=== PATIENT | female | born 1975 | race Caucasian/White ===

== ENCOUNTER 2024-07-22 18:27 | Emergency (ER) | payer OTHER, SELFPAY ==
[2024-07-22 18:40] VITALS: BP 112/65
--- NOTE | 2024-07-22 19:13 | ED.MUSCINJ ---
HPI-Injury
<Flor Anthony NP - Last Filed: 07/22/24 19:17>
General
Chief Complaint: Fall
Time Seen by Provider: 07/22/24 19:45
<Gela Pena PA-C - Last Filed: 07/23/24 00:37>
General
Source: patient
Exam Limitations: none
Nursing documentation reviewed up to this point in time: agreed with
History of Present Illness-Injury
Is pt an associate of [facility]?: No
Initial Injury comments:
49-year-old female presents to the emergency department for evaluation of right knee and right hand pain following mechanical fall at [facility]. Patient states she was grabbing a container from a shelf when she then proceeded to strip on a piece of
plastic that was in the middle of the aisle. She fell forward bracing herself with her right hand. Patient complaining of right knee pain and right hand pain. She does have mild pain in her right lower back, as well. There was no head strike or
loss of conscious. Patient denies any numbness/tingling in lower extremities, weakness, loss of bowel/bladder incontinence, saddle anesthesia.
Patient does report pain with ambulation although is walking to and from bathroom without difficulty.
Patient did take some ibuprofen just prior to arrival.
ED Provider Triage
<Flor Anthony RECOVERY ROOM RN - Last Filed: 07/22/24 19:17>
-
Patient seen by provider in Triage?: Seen in Triage
Attestation: A medical screening examination has been initiated by a qualified medical provider. Based on the assessment performed at this time, it has been determined that an emergent medical condition may exist and the patient has been informed
that further medical evaluation and possible additional diagnostic testing may be needed.
HPI: Patient reached up to grab containers in the storage container aisle at [facility] took a couple steps foot got tangled in plastic tie on floor, she fell forward, she caught herself with her right hand on the floor, now presents with now has pain
in right knee, right hand. States pain from right knee radiates up thigh to lower back. Denies neck pain.
GENERAL: Alert , in no apparent distress
EYE: No visual abnormalities.
NECK: Trachea midline
ENT: No visible abnormalities.
LUNGS: No acute respiratory distress
NEUROLOGICAL: Alert and oriented
SKIN: Skin intact. No visible changes.
MUSCULOSKELETAL: Moving extremities normally
PSYCH: Normal and appropriate interaction.
This is a medical evaluation conducted in person to initiate diagnostic evaluation and provide initial therapeutics. Please see further documentation by the treating clinician.
Review of Systems
<Gela Pena PA-C - Last Filed: 07/23/24 00:37>
Review of Systems
Allergies reviewed?: Yes
All Other Systems: ROS reviewed and negative except as documented in HPI and ROS
Phy Exam
<Gela Pena PA-C - Last Filed: 07/23/24 00:37>
Physical Exam
Physical Exam:
Vitals: Patient's vital signs are stable. Afebrile
General: Patient is very well appearing, no acute distress
Skin: Warm and dry, no rashes or lesions
Head: Normocephalic, atraumatic
Eyes: Sclera nonicteric. EOMs intact. No nystagmus.
Throat: Protecting airway
Neck: Normal ROM, no cervical spine tenderness, no meningismus
Cardiac: Regular rate and rhythm, no murmurs.
Pulm: Normal respiratory effort, no wheezes, rales, rhonchi heard on exam.
Abdomen: No abdominal tenderness.
Extremities: Small contusion noted to right patella without any deformity. No joint line tenderness of right knee. Patient has excellent range of motion right knee without pain. No pain with internal/external rotation right hip. Mild ecchymoses
of dorsal right hand although no bony tenderness. Excellent range of motion right fingers, right wrist without pain. No tenderness at anatomical snuffbox. Left upper and left lower extremities atraumatic and nontender. Patient has palpable DP
and radial pulses in bilateral upper and lower extremities. Sensation fully intact. Strength 5 out of 5 in upper and lower extremities
Neuro: AAOx3. CN II-XII intact. No focal neurologic deficits.
Psychiatric: Normal affect.
Injury Course
<Flor Anthony, RECOVERY ROOM RN - Last Filed: 07/22/24 19:17>
Orders/Labs/Results
Orders:
Orders
07/22/24 19:15
Hand, Right 3 View [CR Hand - Right Min 3 Views] Urgent
Comment:
Reason For Exam: pain after fall
Knee, Right 4 or More Views [CR Knee- Right 4 Or More View*] Urgent
Comment:
Reason For Exam: pain after fall
07/22/24 19:16
Ibuprofen [Motrin] 600 mg PO NOW STA
<Gela Pena PA-C - Last Filed: 07/23/24 00:37>
Orders/Labs/Results
Orders:
Orders
07/22/24 19:15
Hand, Right 3 View [CR Hand - Right Min 3 Views] Urgent
Comment:
Reason For Exam: pain after fall
Knee, Right 4 or More Views [CR Knee- Right 4 Or More View*] Urgent
Comment:
Reason For Exam: pain after fall
07/22/24 19:16
Ibuprofen [Motrin] 600 mg PO NOW STA
<Gela Pena PA-C - Last Filed: 07/23/24 00:37>
MDM/Problems Addressed
Differential Diagnosis Includes:
Not limited to: Patellar fracture, patellar contusion, ligamentous knee injury, hand contusion, hand sprain, lumbar strain, etc.
MDM/Problems Addressed:
49-year-old female presenting with right hand and right knee pain following mechanical fall at [facility] just prior to arrival. There was no head strike or loss of conscious. Patient has been ambulatory in department without difficulty. No
neurologic symptoms or red flag back pain symptoms. Patient has stable vital signs on arrival. On exam�patient is well-appearing, no apparent distress. No evidence of head or neck trauma. No midline spinal tenderness. Small contusion noted to
right patella although excellent range of motion in knee. No joint line tenderness. Right hand with very mild contusion on dorsal aspect without any limited range of motion or bony tenderness. Bilateral upper and lower extremities with palpable
pulses and neurovascular intact. X-ray of right knee and right hand were obtained in triage. On my initial review�no evidence of fracture or dislocation. Suspect likely knee contusion and hand contusion. Possible lumbar strain, as well. Will
Steve wrap right knee. Recommend ice, elevation, Tylenol/NSAIDs for pain. Return precautions discussed. Gave name for orthopedics if symptoms persist/worsen.
Chronic conditions affecting care:
N/A
Acute Exacerbation and/or Progression of Chronic Illness:
N/A
<Gela Pena PA-C - Last Filed: 07/23/24 00:37>
*Radiology
Radiology exam reviewed: preliminary read by ED provider (Reviewed by me-no acute fracture of right knee and right hand)
*Pulse Oximetry
Patient hypoxic: no
*EKG
Interpreted by ED Provider?: NA
*[employer] Interpretation
Rate: [employer]- N/A
*Critical Care Note
Total Time (30-74mins, 75-104mins- exclusive of procedures): Not Applicable
ED Attending Note
<Flor Anthony NP - Last Filed: 07/22/24 19:17>
-
Portions of this chart may have been created with voice recognition software.� Occasional wrong word or��sound alike� substitutions may have occurred due to the inherent limitations of voice recognition software.
Discharge Plan
Departure
Patient Disposition: Home (Routine Discharge)
Date of Disposition: 07/22/24
Time of Disposition: 21:06
Patient with high blood pressure during this ER visit?: No
Condition: Good
Discharge Problem:
Fall, Contusion of right knee, Contusion of right hand, Lumbar strain
Instructions: Contusion (DC), Knee pain - ED discharge instructions
Referrals:
Jeremi Valencia MD [Active] - As needed
Activity Restrictions/Additional Instructions:
RETURN TO THE EMERGENCY DEPARTMENT WITH ANY INTRACTABLE PAIN, NUMBNESS/TINGLING IN LOWER EXTREMITIES, LOSS OF BOWEL/BLADDER CONTROL, WEAKNESS, INABILITY TO AMBULATE, WORSENING IN CURRENT SYMPTOMS, OR ANY OTHER CONCERNS
-As discussed the initial read of your imaging showed no evidence of acute fracture. I suspect you sustained contusions to both your knee and hand. You may have a lower back strain, as well.
-Continue to Steve wrap, ice, elevate knee and hand as often as possible. Take Tylenol and/or Motrin as needed for discomfort.
-If symptoms persist or worsen you should follow-up with orthopedics. You may require further imaging.
Monitor your symptoms closely and return to the emergency department with any acute worsening/new symptoms or any other concerns
Interventions
Interventions:
*General Assessment Last Done: 07/22/24 18:40
*Nursing Disposition Last Done: 07/22/24 21:26
ED-Musculoskeletal Assessment Last Done: 07/22/24 21:25
ED- Neurological Assessment Last Done: 07/22/24 21:25
ED-Skin Assessment Last Done: 07/22/24 21:25
Discharge Date and Time
Discharge Date/Time: 07/22/24 21:27
Print Language: DANISH
[2024-07-22] MEDS: MOTRIN 600 MG PO (19:20)
== END 2024-07-22 21:27 | disposition home or self-care (01) ==
LOC: EMR 18:27
PROVIDERS: EMERGENCY PHYSICIAN Emergency Medicine; FAMILY PHYSICIAN Family Medicine
DX: S80.01XA Contusion of right knee, initial encounter (principal); S60.221A Contusion of right hand, initial encounter; S39.012A Strain of muscle, fascia and tendon of lower back, initial encounter; W19.XXXA Unspecified fall, initial encounter; Y93.01 Activity, walking, marching and hiking
CPT/HCPCS: 99283; 73130; 73564